=== PATIENT | female | born 1995 | race Caucasian/White ===

== ENCOUNTER 2019-03-28 12:06 | Emergency (ER) | payer OTHER ==
--- OUTSIDE RECORDS SUMMARY | 2019-03-28 12:17 | XMS REPORT | Continuity of Care Document ---
:1995 External Reference #:[id number] Author Name Jeff Perez N.P. Address [address] [place] [address] Care Team Providers Name Role Phone Carolyn Mnoae MD Care Team Information Rn Renal Unavailable Payers Date Identification Numbers Payment Provider Subscriber Effective: 2015 Policy Number: [id number] [facility] Sheri Enriquez PayID: [id number] [address] [place] [address] Policy Number: [id number] Medicaid/[facility] Sheri Enriquez PayID: [id number] [address] [place] [address] Family History Date Family Member(s) Observation Comments General Lupus General Rheumatoid Arthritis General Thyroid Disease General Diabetes General Fibromyalgia General Breast Cancer Father 50 Father No Current Problems Mother 50 Mother Lupus Mother Anti Clotting Disease Children None Siblings 1 Social History Type Date Description Comments Sex Unknown Work Status Part-Time Employment ETOH Use Occasionally consumes alcohol Tobacco Use Start: Unknown Patient has never smoked Recreational Drug Use Denies Drug Use Allergies, Adverse Reactions, Alerts Active Allergies Reaction Severity Comments Date Cefprozil 12/23/2017 Medications Active Medications SIG Qnty Indications Ordering Date Provider Cyclobenzaprine HCL take one tablet 30tabs M62.830 Carolyn Monae, 2018 10mg by mouth three M.D. Tablets times a day as needed Prednisone 2 tab by mouth 60tabs M54.17 Carolyn Monae, 01/19/2019 20mg Tablets daily 4 M.D. days,30mg x3d,61xgh4a,10g mx7d Adderall 1 tab by mouth 60tabs F90.0 Carolyn Monae, 01/20/2018 10mg Tablets twice a day M.D. 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 History Medications Adderall XR 1 tab by mouth 30caps R53.83 Carolyn Monae, 01/06/2018 - 10mg every morning M.D. 01/20/2018 Caps ER 24HR F90.0 Vital Signs Date Vital Result Comment 03/18/2019 11:43am BP Systolic 128 mmHg BP Diastolic 82 mmHg Height 68 inches 5'8" Weight 258.00 lb BMI (Body Mass Index) 39.2 kg/m2 Heart Rate 104 /min Respiratory Rate 16 /min 01/19/2019 3:56pm BP Systolic 128 mmHg BP Diastolic 72 mmHg Height 68 inches 5'8" Weight 247.00 lb BMI (Body Mass Index) 37.6 kg/m2 Heart Rate 86 /min Respiratory Rate 18 /min 10/23/2018 10:29am BP Systolic 124 mmHg BP Diastolic 82 mmHg Height 68 inches 5'8" Weight 243.00 lb BMI (Body Mass Index) 36.9 kg/m2 Heart Rate 78 /min Respiratory Rate 16 /min 01/06/2018 10:32am BP Systolic 130 mmHg BP Diastolic 80 mmHg Height 68 inches 5'8" Weight 269.00 lb BMI (Body Mass Index) 40.9 kg/m2 Heart Rate 87 /min Respiratory Rate 18 /min 12/23/2017 10:20am BP Systolic 120 mmHg BP Diastolic 82 mmHg Height 68 inches 5'8" Weight 269.00 lb BMI (Body Mass Index) 40.9 kg/m2 Heart Rate 83 /min Respiratory Rate 18 /min Results Test Date Facility Test Result H/L Range Note Laboratory test [facility] Thyroglobulin AB <1.8 IU/mL < 4.0 1 finding 8 CBC Auto Diff [facility] White Blood Count 6.9 10^3/uL N 3.5-10.8 8 Red Blood Count 4.49 10^6/uL N 4.0-5.4 Hemoglobin 13.8 g/dL N 12.0-16.0 Hematocrit 40 % N 35-47 Mean Corpuscular Volume 90 fL N 80-97 Mean Corpuscular Hemoglobin 31 pg N 27-31 Mean Corpuscular HGB Conc 34 g/dL N 31-36 Red Cell Distribution Width 13 % N 10.5-15 Platelet Count 229 10^3/uL N 150-450 Mean Platelet Volume 9 um3 N 7.4-10.4 Abs Neutrophils 4.2 10^3/uL N 1.5-7.7 Abs Lymphocytes 2.1 10^3/uL N 1.0-4.8 Abs Monocytes 0.5 10^3/uL N 0-0.8 Abs Eosinophils 0.1 10^3/uL N 0-0.6 Abs Basophils 0 10^3/uL N 0-0.2 Abs Nucleated RBC 0 10^3/uL Granulocyte % 60.2 % N 38-83 Lymphocyte % 30.6 % N 25-47 Monocyte % 7.4 % High 0-7 Eosinophil % 1.2 % N 0-6 Basophil % 0.6 % N 0-2 Nucleated Red Blood Cells % 0 Comp Metabolic Panel 01/06/2018 [facility] Sodium 135 mmol/L N 133- 145 Potassium 4.1 mmol/L N 3.5-5.0 Chloride 105 mmol/L N 101-111 Co2 Carbon Dioxide 25 mmol/L N 22-32 Anion Gap 5 mmol/L N 2-11 Glucose 87 mg/dL N 70-100 Blood Urea Nitrogen 15 mg/dL N 6-24 Creatinine 0.78 mg/dL N 0.51-0.95 BUN/Creatinine Ratio 19.2 N 8-20 Calcium 9.2 mg/dL N 8.6-10.3 Total Protein 6.6 g/dL N 6.4-8.9 Albumin 4.1 g/dL N 3.2-5.2 Globulin 2.5 g/dL N 2-4 Albumin/Globulin Ratio 1.6 N 1-3 Total Bilirubin 0.20 mg/dL N 0.2-1.0 Alkaline Phosphatase 68 U/L N 34-104 Alt 22 U/L N 7-52 Ast 16 U/L N 13-39 Egfr Non- 90.7 >60 Egfr 116.7 >60 2 Laboratory test 01/06/2018 [facility] Erythrocyte Sed 13 mm/Hr N 0- 14 3 finding Rate Connective Tissue 01/06/2018 [facility] Anti-Nuclear 1.3 U High 4 Panel Antibody Cyclic Citrullinated Peptide <15.6 U 5 Interpretation See Comment 6 Melanie Rodriguez 01/06/2018 [facility] Ebv Capsid Ag Positive Negative Comprehensive IgG Ab Ebv Capsid Ag IgM Ab Negative Negative Melanie-Rodriguez Nuclear Antigen Positive Negative Melanie-Rodriguez Virus Interp See Comment 7 Hepatitis Acute 01/06/2018 [facility] Hepatitis B Nonreactive Nonreactive Panel Surface Antigen Hepatitis A AB IgM Nonreactive Nonreactive Hepatitis C Antibody Nonreactive Nonreactive Hepatitis B Core IgM Nonreactive Nonreactive Laboratory test 01/06/2018 [facility] Lyme Disease Negative Negative 8 finding Serology Free T4 (Free Thyroxine) 0.63 ng/dL N 0.61-1.12 9 TSH (Thyroid Stim Horm) 1.59 mcIU/mL N 0.34-5.60 10 Rheumatoid Factor <10 IU/mL 0-14 11 Thyroperoxidase AB 1.54 IU/mL N <9 12 1 ADDITIONAL INFORMATION The thyroglobulin antibody testing method is an immunoenzymatic assay manufactured by [employer]. and performed on the [employer] DXI 800. Values obtained from different assay methods or kits may be different and cannot be used interchangeably. The results cannot be interpreted as absolute evidence for the presence or absence of malignant disease. Test Performed by: [facility] [address] [place] [address] 2 Because ethnic data is not always readily available, this report includes an eGFR for both -Americans and non- Americans. The National Kidney Disease Education Program (NKDEP) does not endorse the use of the MDRD equation for patients that are not between the ages of 18 and 70, are , have extremes of body size, muscle mass, or nutritional status, or are non- or non-. According to the National Kidney Foundation, irrespective of diagnosis, the stage of the disease is based on the level of kidney function: Stage Description GFR(mL/min/1.73 m(2)) 1 Kidney damage with normal or decreased GFR 90 2 Kidney damage with mild decrease in GFR 60-89 3 Moderate decrease in GFR 30-59 4 Severe decrease in GFR 15-29 5 Kidney failure <15 (or dialysis) 3 [id number] Interpretation: Weak Positive (1.1-2.9) REFERENCE VALUE <=1.0 (Negative) 5 REFERENCE VALUE <20.0 (Negative) 6 Tests for antibodies to dsDNA and NORM antigens are not performed automatically unless the ÁNGEL result is > or= 3.0 U. Studies performed at [facility] indicate that positive ÁNGEL results <3.0 U are rarely accompanied by positive second order tests. Test Performed by: [facility] - [address] [address] 7 RESULT: Results suggest past infection. ADDITIONAL INFORMATION In most populations, at least 90% of the adult population will have been infected with EBV sometime in the past and therefore, will be positive for anti-VCA/IgG and anti- EBNA. Antibodies to EBNA develop 6-8 weeks after primary infection and remain present for life. Presence of VCA/ IgM antibodies indicates recent primary infection with EBV. Test Performed by: [facility] - [address] [address] 8 Serologic response to B. burgdorferi infection is not detected, but cannot rule out early infection during which low or undetectable antibody levels to B. burgdorferi may be present. If clinically indicated, a new serum specimen should be submitted in 7-14 days. Test Performed by: [facility] - [address] [address] 9 [id number] 11 Performed by [employer], [address] [place] [id number] [email or web address], Josh Neal MD - Lab. Director Test Performed by: [facility] [address] [place] [address] 12 [id number] Procedures Date Code Description Status 12/23/2017 84790 Visual Screening Test Completed 12/23/2017 93528 Audiometry, Bekesy, Screening Completed Encounters Type Date Location Provider Dx Diagnosis Office Visit 03/18/2019 [facility] Jeff Perez, L20.9 Atopic dermatitis, 11:45a N.P. unspecified J30.9 Allergic rhinitis, unspecified H52.13 Myopia, bilateral E66.01 Morbid (severe) obesity due to excess calories F41.9 Anxiety disorder, unspecified F33.9 Major depressive disorder, recurrent, unspecified Z30.49 Encounter for surveillance of other contraceptives R53.83 Other fatigue G47.419 Narcolepsy without cataplexy M35.8 Other specified systemic involvement of connective tissue M54.17 Radiculopathy, lumbosacral region M62.830 Muscle spasm of back Office Visit 01/19/2019 4:30p [facility] Jeff Perez, L20.9 Atopic dermatitis, N.P. unspecified J30.9 Allergic rhinitis, unspecified H52.13 Myopia, bilateral E66.01 Morbid (severe) obesity due to excess calories F41.9 Anxiety disorder, unspecified F33.9 Major depressive disorder, recurrent, unspecified Z30.49 Encounter for surveillance of other contraceptives R53.83 Other fatigue G47.419 Narcolepsy without cataplexy M35.8 Other specified systemic involvement of connective tissue M54.17 Radiculopathy, lumbosacral region M62.830 Muscle spasm of back Office Visit 10/23/2018 10:30a [facility] Carolyn Monae L20.Chayito Landa M.D. unspecified J30.9 Allergic rhinitis, unspecified H52.13 Myopia, bilateral E66.01 Morbid (severe) obesity due to excess calories F41.9 Anxiety disorder, unspecified F33.9 Major depressive disorder, recurrent, unspecified Z30.49 Encounter for surveillance of other contraceptives R53.83 Other fatigue G47.419 Narcolepsy without cataplexy M35.8 Other specified systemic involvement of connective tissue Office Visit 01/06/2018 10:30a [facility] Carolyn Monae L20.9 Chayito Collins M.D. unspecified J30.9 Allergic rhinitis, unspecified H52.13 Myopia, bilateral E66.01 Morbid (severe) obesity due to excess calories F41.9 Anxiety disorder, unspecified F33.9 Major depressive disorder, recurrent, unspecified G47.00 Insomnia, unspecified Z30.49 Encounter for surveillance of other contraceptives R53.83 Other fatigue G47.419 Narcolepsy without cataplexy M35.8 Other specified systemic involvement of connective tissue Office Visit 12/23/2017 10:15a [facility] Carolyn Monae Z00.01 Encounter for [facility] general adult medical exam w abnormal findings L20.9 Atopic dermatitis, unspecified J30.9 Allergic rhinitis, unspecified H52.13 Myopia, bilateral E66.01 Morbid (severe) obesity due to excess calories F41.9 Anxiety disorder, unspecified F33.9 Major depressive disorder, recurrent, unspecified G47.00 Insomnia, unspecified Z30.49 Encounter for surveillance of other contraceptives R53.83 Other fatigue G47.419 Narcolepsy without cataplexy Z68.41 Body mass index (BMI) 40.0-44.9, adult Plan of Treatment 03/18/2019 - Jeff Perez N.P.L20.9 Atopic dermatitis, unspecifiedComments: SKIN CARE INSTRUCTIONS LOTION OR BABY OIL 2-3 APPLICATION PER DAYUSE MOISTURIZING SOAPAVOID PROLONGED WATER EXPOSUREAVOID USING HOT WATER IN LUUKXXR02.9 Allergic rhinitis, unspecifiedComments:INCREASE PO FLUID USE ANTIHISTAMINE PRN SECOND HAND SMOKING AICYECHHIE66.13 Myopia, bilateralComments: USE GLASSES/ CONTACTSF/U WITH DOPTCAQFLPQWPS89.01 Morbid (severe) obesity due to excess caloriesComments:WT LOSS COUNCELLINGEXERCISEDIET COUNCILLING EXTENSIVE TEACHING ON SURGICAL TX OPTIONS HANDOUT ON DIET GIVEN TO PT WITH EXTENSIVE CUUJDFZE30.9 Anxiety disorder, unspecifiedComments:COUNCELLING AND REASSURANCE RELAXATION TECHNIQUES DISCUSSEDCOUNSELED RE: STRESSORS IN LIFE AVOID ALLENERGY/HIGH CAFFEINE DRINKS DUR LFDXRFTR69.9 Major depressive disorder , recurrent, unspecifiedComments:COUNCELLING AND REASSURANCE RELAXATION TECHNIQUES DISCUSSED COUNSELED RE: STRESSORS IN LIFEZ30.49 Encounter for surveillance of other contraceptivesComments:F/U WITH OB/GYNR53.83 Other fatigueComments:INCRFEASE PO FLUIDCOUNCELLING AND REASSURANCE RESTG47.419 Narcolepsy without cataplexyComments:CYBJTADJ03.8 Other specified systemic involvement of connective tissueComments:COUNCELLING AND REASSURANCE F/U WITH NEUROLOGY/EFXUNPDMDQEL01.17 Radiculopathy, lumbosacral regionNew Xrays:Spine, Thoracic, 3 Views, Ordered: 03/18/19Spine, Lumbosacral, 2 Or 3 Views, Ordered: 03/18/19Comments:EXERCISE/HEAT /MESSAGE AVOID HEAVY LIFTING WT LOSS TYLENOL OR MOTRIN PRNM62.830 Muscle spasm of backComments:EXERCISE/HEAT /MESSAGEAVOID HEAVY LIFTING WT LOSSTYLENOL OR MOTRIN PRN
[2019-03-28 12:29] VITALS: BP 138/74
--- NOTE | 2019-03-28 12:55 | UC ---
Back Pain HPI - HPI Summary HPI Summary: 23-year-old female comes in with a chief complaint of low back pain. Patient's had the pain for several months. Pains worse with twisting turning bending. Pain does go down the left buttock into the left leg. Occasionally with standing she gets some numbness in the left leg in the upper part. Has not had any weakness. No difficulty controlling urine or bowels. Initially patient's are primary care physician sutures taking nonsteroidal anti-inflammatories and got a round of prednisone which did help. Patient's also tried muscle relaxers but she has like a message is make her very sleepy. The last 1 day the pains got a lot worse. Patient had plain x-rays done 2 days ago of her thoracic spine and lumbar spine through her primary care physician. - History of Current Complaint Chief Complaint: UCBackPain Stated Complaint: LOW BACK/LEFT LEG PAIN Time Seen by Provider: 03/28/19 12:28 Hx Last Menstrual Period: 03/21/19; implanon Pain Intensity: 8 - Allergies/Home Medications Allergies/Adverse Reactions: Allergies Allergy/AdvReac Type Severity Reaction Status Date / Time cefprozil [From Cefzil] Allergy Hives Verified 03/28/19 12:20 Home Medications: Home Medications Amphetamine MIXED SALT TAB* [Adderall TAB*] 20 mg PO DAILY 03/28/19 [History Confirmed 03/28/19] Implanon 1 implant ONCE 03/28/19 [History Confirmed 03/28/19] PMH/Surg Hx/FS Hx/Imm Hx Previously Healthy: Yes - Surgical History Surgical History: Yes Surgery Procedure, Year, and Place: TONSILS - Family History Known Family History: Positive: Non-Contributory - Social History Alcohol Use: Occasionally Substance Use Type: None Smoking Status (MU): Never Smoked Tobacco Review of Systems All Other Systems Reviewed And Are Negative: Yes Constitutional: Positive: Negative Skin: Positive: Negative Eyes: Positive: Negative ENT: Positive: Negative Respiratory: Positive: Negative Cardiovascular: Positive: Negative Gastrointestinal: Positive: Negative Genitourinary: Positive: Negative Motor: Positive: Negative Neurovascular: Positive: Other - SEE HPI Musculoskeletal: Positive: Other: - SEE HPI Neurological: Positive: Other - SEE HPI Psychological: Positive: Negative Is Patient Immunocompromised?: No Physical Exam Triage Information Reviewed: Yes Appearance: Well-Appearing, Well-Nourished, Pain Distress - MILD WITH ROM Vital Signs: Initial Vital Signs Temp 97.5 F 03/28/19 12:22 Pulse 93 03/28/19 12:22 Resp 16 03/28/19 12:22 BP 138/74 03/28/19 12:22 Pulse Ox 100 03/28/19 12:22 Vital Signs Reviewed: Yes Eye Exam: Normal Eyes: Positive: Conjunctiva Clear Neck: Positive: Supple Respiratory: Positive: Lungs clear, Normal breath sounds, No respiratory distress Musculoskeletal: Positive: Other: - Patient is tender to palpation in the low back and into the sciatic distribution bilaterally but worse on the right than on the left into the buttocks. Legs have full range of motion full-strength no sensation deficit normal capillary refill. The pain in the back does increase with left hip flexion. Neurological Exam: Normal Neurological: Positive: Alert, Muscle Tone Normal Psychological Exam: Normal Psychological: Positive: Normal Response To Family, Age Appropriate Behavior Skin Exam: Normal Back Pain Course/Dx - Course Course Of Treatment: Patient has no neurologic deficits on examination in clinic today. She has been having intermittent numbness in the left leg that is positional. At this time the patient's already on prednisone she also has a prescription for a muscle relaxer and she is also taking NSAIDs. She is seeing her primary care physician for this and she had x-rays of her thoracic spine and lumbar spine done on March 26, 2019 that were read as no acute disease process. I'm referring the patient to sports medicine she'll also follow-up with primary care physician. Return prescription for hydrocodone to be used as needed. Also let her know that if she got into any neurologic deficits weakness numbness difficulty controlling urine or bowel she needs to get reevaluated right away. - Differential Dx/Diagnosis Provider Diagnosis: Low back pain with sciatica Discharge - Sign-Out/Discharge Documenting (check all that apply): Patient Departure All imaging exams completed and their final reports reviewed: No Studies - Discharge Plan Condition: Stable Disposition: HOME Prescriptions: HYDROcodone/ACETAMIN 5-325 MG* [[place] 5-325 TAB*] 1 tab PO Q4H PRN #30 tab MDD 6 PRN Reason: Pain Patient Education Materials: Low Back Strain (ED), Lumbar Radiculopathy (ED), Lower Back Exercises (ED) Referrals: Jeff Perez NP [Primary Care Provider] - [facility] [Provider Group] Additional Instructions: FOLLOW UP WITH YOUR PRIMARY CARE DOCTOR AND/OR SPORTS MEDICINE. GET RECHECKED SOONER IF YOUR CONDITION WORSENS; WEAKNESS, NUMBNESS, DIFFICULTY CONTROLLING BOWEL OR BLADDER OR ANY QUESTIONS OR CONCERNS. - Billing Disposition and Condition Condition: STABLE Disposition: Home
== END 2019-03-28 13:06 | disposition home or self-care (01) ==
LOC: UCCORT 12:06
DX: M54.42 Lumbago with sciatica, left side (principal); Z88.1 Allergy status to other antibiotic agents
CPT/HCPCS: 99212; G0463

== ENCOUNTER 2019-07-18 11:49 | Emergency (ER) | payer OTHER ==
--- OUTSIDE RECORDS SUMMARY | 2019-07-18 11:59 | XMS REPORT | Continuity of Care Document ---
:1995 External Reference #:[id number] Author Name Jeff Perez N.P. Address [address] [place] [address] [address] [place] [address] Care Team Providers Name Role Phone Carolyn Monae MD - Family Medicine Care Team Information [employer] [phone] Problems Description No Information Available Social History Type Date Description Comments Sex Unknown ETOH Use Occasionally consumes alcohol Tobacco Use [...] 01/19/2019 20mg Tablets daily 4 M.D. days,30mg x3d,80jhe9d,10g mx7d Adderall 1 tab by mouth 60tabs F90.0 Carolyn Monae, 01/20/2018 10mg Tablets twice a day M.D. G47.419 Nexplanon use as directed by Z30.49 Carolyn Monae, 12/23/2017 68mg Implant addiction nurse q3 years M.D. Immunizations Description No Information Available Vital Signs Date Vital Result Comment 06/24/2019 11:30am BP Systolic 124 mmHg BP Diastolic 70 mmHg Height 68 inches 5'8" Weight 273.00 lb BMI (Body Mass Index) 41.5 kg/m2 Heart Rate 128 /min Respiratory Rate 18 /min 04/01/2019 11:16am BP Systolic 128 mmHg BP Diastolic 72 mmHg Height 68 inches 5'8" Weight 264.00 lb BMI (Body Mass Index) 40.1 kg/m2 Heart Rate 93 /min Respiratory Rate 18 /min Results Description No Information Available Procedures Description No Information Available Medical Devices Description No Information Available Encounters Type Date Location Provider Dx Diagnosis Office Visit 06/24/2019 [facility] Jeff Perez, L20.9 Atopic dermatitis, 11:30a N.P. 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 unspecified [...] M62.830 Muscle spasm of back Office Visit 03/18/2019 11:45a [facility] Jeff Perez, L20.9 Atopic dermatitis, N.P. unspecified [...] spasm of back Office Visit 01/19/2019 4:30p [facility] Jeff Perez, L20.9 Atopic dermatitis, N.P. unspecified J30.9 Allergic rhinitis, unspecified H52.13 Myopia, bilateral E66.01 Morbid (severe) obesity due to excess calories F41.9 Anxiety disorder, unspecified F33.9 Major depressive disorder, recurrent, unspecified Z30.49 Encounter for surveillance of other contraceptives R53.83 Other fatigue G47.419 Narcolepsy without cataplexy M35.8 Other specified systemic involvement of connective tissue M54.17 Radiculopathy, lumbosacral region M62.830 Muscle spasm of back Assessments Date Code Description Provider 06/24/2019 L20.9 Atopic dermatitis, unspecified Jeff Perez, N.P. 06/24/2019 J30.9 Allergic rhinitis, unspecified Jeff Perez, N.P. 06/24/2019 H52.13 Myopia, bilateral Jeff Perez, N.P. 06/24/2019 E66.01 Morbid (severe) obesity due to excess calories Jeff Perez, N.P. 06/24/2019 F41.9 Anxiety disorder, unspecified Jeff Perez, N.P. 06/24/2019 F33.9 Major depressive disorder, recurrent, Jeff Perez, N.P. unspecified 06/24/2019 Z30.49 Encounter for surveillance of other Jeff Chris, N.P. contraceptives 06/24/2019 R53.83 Other fatigue Jeff Perez, N.P. 06/24/2019 G47.419 Narcolepsy without cataplexy Jeff Perez, N.P. 06/24/2019 M35.8 Other specified systemic involvement of Jeff Perez, N.P. connective tissue 06/24/2019 M54.17 Radiculopathy, lumbosacral region Jeff Perez, N.P. 06/24/2019 M62.830 Muscle spasm of back Jeff Perez, N.P. 06/24/2019 E66.9 Obesity, unspecified Jeff Perez, N.P. 04/01/2019 L20.9 Atopic dermatitis, unspecified Jeff Perez, N.P. 04/01/2019 J30.9 Allergic rhinitis, unspecified Jeff Perez, N.P. 04/01/2019 H52.13 Myopia, bilateral Jeff Perez, N.P. 04/01/2019 E66.01 Morbid (severe) obesity due to excess calories Jeff Perez, N.P. 04/01/2019 F41.9 Anxiety disorder, unspecified Jeff Perez, N.P. 04/01/2019 F33.9 Major depressive disorder, recurrent, Jeff Perez, N.P. unspecified 04/01/2019 Z30.49 Encounter for surveillance of other Jeff Perez, N.P. contraceptives 04/01/2019 R53.83 Other fatigue Jeff Perez, N.P. 04/01/2019 G47.419 Narcolepsy without cataplexy Jeff Perez, N.P. 04/01/2019 M35.8 Other specified systemic involvement of Jeff Perez, N.P. connective tissue 04/01/2019 M54.17 Radiculopathy, lumbosacral region Jeff Perez, N.P. 04/01/2019 M62.830 Muscle spasm of back Jeff Perez, N.P. 03/18/2019 L20.9 Atopic dermatitis, unspecified Jeff Perez, N.P. 03/18/2019 J30.9 Allergic rhinitis, unspecified Jeff Perez, N.P. 03/18/2019 H52.13 Myopia, bilateral Jeff Perez, N.P. 03/18/2019 E66.01 Morbid (severe) obesity due to excess calories Jeff Perez, N.P. 03/18/2019 F41.9 Anxiety disorder, unspecified Jeff Perez, N.P. 03/18/2019 F33.9 Major depressive disorder, recurrent, Jeff Perez, N.P. unspecified 03/18/2019 Z30.49 Encounter for surveillance of other Jeff Perez, N.P. contraceptives 03/18/2019 R53.83 Other fatigue Jeff Perez, N.P. 03/18/2019 G47.419 Narcolepsy without cataplexy Jeff Perez, N.P. 03/18/2019 M35.8 Other specified systemic involvement of Jeff Perez, N.P. connective tissue 03/18/2019 M54.17 Radiculopathy, lumbosacral region Jeff Perez, N.P. 03/18/2019 M62.830 Muscle spasm of back Jeff Perez, N.P. 01/19/2019 L20.9 Atopic dermatitis, unspecified Jeff Perez, N.P. 01/19/2019 J30.9 Allergic rhinitis, unspecified Jeff Perez, N.P. 01/19/2019 H52.13 Myopia, bilateral Jeff Perez N.P. 01/19/2019 E66.01 Morbid (severe) obesity due to excess calories Jeff Perez N.P. 01/19/2019 F41.9 Anxiety disorder, unspecified Jeff Perez N.P. 01/19/2019 F33.9 Major depressive disorder, recurrent, Jeff Perez N.P. unspecified 01/19/2019 Z30.49 Encounter for surveillance of other Jeff Perez N.P. contraceptives 01/19/2019 R53.83 Other fatigue Jeff Perez N.P. 01/19/2019 G47.419 Narcolepsy without cataplexy Jeff Perez N.P. 01/19/2019 M35.8 Other specified systemic involvement of Chema Lorenz.Pop connective tissue 01/19/2019 M54.17 Radiculopathy, lumbosacral region Jeff Perez N.P. 01/19/2019 M62.830 Muscle spasm of back Jeff Perez N.Pop Plan of Treatment 06/24/2019 - Jeff Perez N.PYousifL20.9 Atopic dermatitis, unspecifiedComments: SKIN CARE INSTRUCTIONS LOTION OR BABY OIL 2-3 APPLICATION PER DAYUSE MOISTURIZING SOAPAVOID PROLONGED WATER EXPOSUREAVOID USING HOT WATER IN EWDYEYW17.9 Allergic rhinitis, unspecifiedComments:INCREASE PO FLUID USE ANTIHISTAMINE PRN SECOND HAND SMOKING YUXUDWYIXD64.13 Myopia, bilateralComments: USE GLASSES/ CONTACTSF/U WITH HTGBEFTESYLJNO46.01 Morbid (severe) obesity due to excess caloriesComments:WT LOSS COUNCELLINGEXERCISEDIET COUNCILLING EXTENSIVE TEACHING ON SURGICAL TX OPTIONS HANDOUT ON DIET GIVEN TO PT WITH EXTENSIVE ATEBJDII51.9 Anxiety disorder, unspecifiedComments:COUNCELLING AND REASSURANCE RELAXATION TECHNIQUES DISCUSSEDCOUNSELED RE: STRESSORS IN LIFE AVOID ALLENERGY/HIGH CAFFEINE DRINKS DUR GAVZANVI07.9 Major depressive disorder , recurrent, unspecifiedComments:COUNCELLING AND REASSURANCE RELAXATION TECHNIQUES DISCUSSED COUNSELED RE: STRESSORS IN LIFEZ30.49 Encounter for surveillance of other contraceptivesComments:F/U WITH OB/GYNR53.83 Other fatigueComments:INCRFEASE PO FLUIDCOUNCELLING AND REASSURANCE RESTG47.419 Narcolepsy without cataplexyComments:TRPFDHDM77.8 Other specified systemic involvement of connective tissueComments:COUNCELLING AND REASSURANCE F/U WITH NEUROLOGY/VHQMZUQMFMJT68.17 Radiculopathy, lumbosacral regionComments:EXERCISE/ HEAT /MESSAGE AVOID HEAVY LIFTING WT LOSS TYLENOL OR MOTRIN PRNM62.830 Muscle spasm of backComments:EXERCISE/HEAT /MESSAGEAVOID HEAVY LIFTING WT LOSSTYLENOL OR MOTRIN PRNE66.9 Obesity, unspecifiedComments:WT LOSS COUNCELLINGEXERCISEDIET COUNCILLINGReferral:[facility], [employer] Functional Status Functional Condition Comment Date Status Glasses Active Mental Status Description No Information Available Referrals Refer to Dr Reason for Referral Status Appt Date [facility] Created [address] [facility] [id number] [phone] [facility] Therapy Closed [address] [place], [place] [id number] [phone]
[2019-07-18 13:16] VITALS: BP 124/81
--- NOTE | 2019-07-18 13:59 | UC ---
Back Pain HPI - HPI Summary HPI Summary: pt is c/o a 6 month hx of "nerve pain" in her L low back that sometimes radiates into her L buttock and L thigh. It began after "rodeoing" while getting off her horse. she has had thoracic and lumbar xrays which are normal. she is currently in PT. she is taking Motrin with occasional partial relief. she has been on a mm relaxer which helped and steroids that helped as well. around 06/24, she felt much improved and figured she was better; however, she has gotten much worse again. last she saw her pcp was when things had improved. - History of Current Complaint Chief Complaint: UCBackPain Stated Complaint: LEFT LEG NERVE PAIN Time Seen by Provider: 07/18/19 13:46 Hx Obtained From: Patient Hx Last Menstrual Period: 06/09/19 Pain Intensity: 8 Aggravating Factor(s): Movement, Bending Associated Signs And Symptoms: Positive: Other - no saddle anesthesia. Negative : Fever, Weakness, Numbness, Tingling, Abdominal Pain, Flank Pain, Bladder Incontinence, Bowel Incontinence - Risk Factors Cauda Equina Risk Factors: Negative Epidural Abscess Risk Factors: Negative - Allergies/Home Medications Allergies/Adverse Reactions: Allergies Allergy/AdvReac Type Severity Reaction Status Date / Time cefprozil [From Cefzil] Allergy Hives Verified 07/18/19 13:16 Home Medications: Home Medications Ibuprofen TAB* [Motrin TAB* 800 MG] 800 mg PO ONCE 07/18/19 [History Confirmed 07/18/19] PMH/Surg Hx/FS Hx/Imm Hx - Additional Past Medical History Additional PMH: ADHD, low back and LLE pain x 6 months. - Surgical History Surgical History: Yes Surgery Procedure, Year, and Place: TONSILS - Family History Known Family History: Positive: Non-Contributory - Social History Alcohol Use: Occasionally Substance Use Type: None Smoking Status (MU): Never Smoked Tobacco Review of Systems All Other Systems Reviewed And Are Negative: No Constitutional: Negative: Fever Skin: Negative: Rash Gastrointestinal: Negative: Abdominal Pain, Vomiting, Diarrhea, Nausea Genitourinary: Negative: Dysuria Neurological: Positive: Paresthesia - LLE. Negative: Weakness, Numbness Physical Exam Triage Information Reviewed: Yes Appearance: Well-Appearing Vital Signs: Initial Vital Signs Temp 98.4 F 07/18/19 13:06 Pulse 65 07/18/19 13:06 Resp 16 07/18/19 13:06 BP 124/81 07/18/19 13:06 Pulse Ox 100 07/18/19 13:06 Vital Signs Reviewed: Yes Eyes: Positive: Conjunctiva Clear ENT: Positive: Pharynx normal, TMs normal. Negative: Nasal congestion, Nasal drainage Neck: Positive: Supple, Nontender, No Lymphadenopathy, Other: - c-spine non tender. Respiratory: Positive: Lungs clear, Normal breath sounds, No respiratory distress Cardiovascular: Positive: RRR, No Murmur Abdomen Description: Positive: Nontender, No Organomegaly, Soft. Negative: Distended, Guarding, Pulsatile Mass Musculoskeletal: Positive: Other: - Back: no deformity or rash. spine is non tender. pain L paraspinal MM's in lumbar region and limited ROM due to L low back pain. sciatic notch non tender and negative straight leg raises x2. 5/5 strength and sensation intact x4. No saddle anesthesia. 1+ reflexes BUE's and 2 + BLE's. steady gait. Neurological: Positive: Alert Psychological: Positive: Age Appropriate Behavior Skin Exam: Normal Skin: Negative: Rashes Back Pain Course/Dx - Differential Dx/Diagnosis Differential Diagnosis/HQI/PQRI: Other - no concern for infection, fx or acute abdomen. no concern for cauda equina. hx suggests a radiculopathy. wiil tx medrol dose jamilah, mm relaxor, Motrin for break thorugh pain and close f/u. will give name of neurosurgeon as well in case needed. Provider Diagnosis: Lumbar radiculopathy, Low back pain Discharge ED - Sign-Out/Discharge Documenting (check all that apply): Patient Departure All imaging exams completed and their final reports reviewed: No Studies - Discharge Plan Condition: Stable Disposition: HOME Prescriptions: Cyclobenzaprine TAB* [Flexeril 10 MG TAB*] 10 mg PO TID PRN #15 tab PRN Reason: Spasms - Back Ibuprofen TAB* [Motrin TAB* 600 MG] 600 mg PO Q8H PRN #15 tab PRN Reason: Pain - Severe methylPREDNISolone [Medrol Dosepak 4 MG*] 0 mg PO .SEE JAMILAH INSTRUCTION #1 tab Patient Education Materials: Lumbar Radiculopathy (ED), Back Pain (ED) Referrals: Jeff Perez NP [Primary Care Provider] - As Soon As Possible Vikram CROCKETT,Analia [Medical Doctor] - If Needed Additional Instructions: USE THE MOTRIN FOR BREAK THROUGH PAIN ONLY. TAKE 600MG EVERY 8 HOURS NEEDED. - Billing Disposition and Condition Condition: STABLE Disposition: Home
== END 2019-07-18 14:28 | disposition home or self-care (01) ==
LOC: UCCORT 11:49
DX: M54.16 Radiculopathy, lumbar region (principal); Z88.2 Allergy status to sulfonamides
CPT/HCPCS: 99212; G0463

== ENCOUNTER 2019-09-12 15:59 | Emergency (ER) | payer OTHER ==
--- OUTSIDE RECORDS SUMMARY | 2019-09-12 16:07 | XMS REPORT | Continuity of Care Document ---
:1995 External Reference #:[id number] Author Name Jeff Perez N.P. Address [address] [place] [address] [address] [place] [address] Care Team Providers Name Role Phone Carolyn Monae MD - Family Medicine Care Team Information Network Admin Problems Description No Information Available Social History [...] 01/19/2019 20mg Tablets daily 4 M.D. days,30mg x3d,79kmh7b,10g mx7d Adderall 1 tab by mouth 60tabs F90.0 Carolyn Monae, 01/20/2018 10mg Tablets twice a day M.D. G47.419 Nexplanon use as directed by Z30.49 Carolyn Monae, 12/23/2017 68mg Implant judge q3 years M.D. Immunizations Description No Information Available Vital Signs Date Vital Result Comment 07/29/2019 1:28pm BP Systolic 130 mmHg BP Diastolic 65 mmHg Height 68 inches 5'8" Weight 277.00 lb BMI (Body Mass Index) 42.1 kg/m2 Heart Rate 85 /min Respiratory Rate 16 /min 06/24/2019 11:30am BP Systolic 124 mmHg BP Diastolic 70 mmHg Height 68 inches 5'8" Weight 273.00 lb BMI (Body Mass Index) 41.5 kg/m2 Heart Rate 128 /min Respiratory Rate 18 /min Results Description No Information Available Procedures Description No Information Available Medical Devices Description No Information Available Encounters Type Date Location Provider Dx Diagnosis Office Visit 07/29/2019 [facility] Jeff Perez, L20.9 Atopic dermatitis, 1:30p N.P. unspecified J30.9 Allergic rhinitis, unspecified H52.13 Myopia, bilateral E66.01 Morbid (severe) obesity due to excess calories F41.9 Anxiety disorder, unspecified F33.9 Major depressive disorder, recurrent, unspecified Z30.49 Encounter for surveillance of other contraceptives R53.83 Other fatigue G47.419 Narcolepsy without cataplexy M35.8 Other specified systemic involvement of connective tissue M54.17 Radiculopathy, lumbosacral region M62.830 Muscle spasm of back E66.9 Obesity, unspecified Office Visit 06/24/2019 11:30a [facility] Jeff Perez, L20.9 Atopic dermatitis, N.P. [...] E66.9 Obesity, unspecified Office Visit 04/01/2019 11:15a [facility] Jeff Perez, L20.9 Atopic dermatitis, N.P. [...] spasm of back Office Visit 03/18/2019 11:45a [facility] Jeff Perez, L20.9 Atopic dermatitis, N.P. [...] of back Assessments Date Code Description Provider 07/29/2019 L20.9 Atopic dermatitis, unspecified Jeff Perez, N.P. 07/29/2019 J30.9 Allergic rhinitis, unspecified Jeff Perez, N.P. 07/29/2019 H52.13 Myopia, bilateral Jeff Perez, N.P. 07/29/2019 E66.01 Morbid (severe) obesity due to excess calories Jeff Perez, N.P. 07/29/2019 F41.9 Anxiety disorder, unspecified Jeff Perez, N.P. 07/29/2019 F33.9 Major depressive disorder, recurrent, Jeff Perez, N.P. unspecified 07/29/2019 Z30.49 Encounter for surveillance of other Jeff Perez, N.P. contraceptives 07/29/2019 R53.83 Other fatigue Jeff Perez, N.P. 07/29/2019 G47.419 Narcolepsy without cataplexy Jeff Perez, N.P. 07/29/2019 M35.8 Other specified systemic involvement of Jeff Perez, N.P. connective tissue 07/29/2019 M54.17 Radiculopathy, lumbosacral region Jeff Perez, N.P. 07/29/2019 M62.830 Muscle spasm of back Jeff Perez, N.P. 07/29/2019 E66.9 Obesity, unspecified Jeff Perez, N.P. 07/27/2019 L20.9 Atopic dermatitis, unspecified Jeff Perez, N.P. 07/27/2019 J30.9 Allergic rhinitis, unspecified Jeff Perez, N.P. 07/27/2019 H52.13 Myopia, bilateral Jeff Perez, N.P. 07/27/2019 E66.01 Morbid (severe) obesity due to excess calories Jeff Perez, N.P. 07/27/2019 F41.9 Anxiety disorder, unspecified Jeff Perez, N.P. 07/27/2019 F33.9 Major depressive disorder, recurrent, Jeff Perez, N.P. unspecified 07/27/2019 Z30.49 Encounter for surveillance of other Jeff Perez, N.P. contraceptives 07/27/2019 R53.83 Other fatigue Jeff Perez, N.P. 07/27/2019 G47.419 Narcolepsy without cataplexy Jeff Perez, N.P. 07/27/2019 M35.8 Other specified systemic involvement of Jeff Perez, N.P. connective tissue 07/27/2019 M54.17 Radiculopathy, lumbosacral region Jeff Perez, N.P. 07/27/2019 M62.830 Muscle spasm of back Jeff Perez, N.P. 07/27/2019 E66.9 Obesity, unspecified Jeff Perez, N.P. 06/24/2019 L20.9 Atopic dermatitis, unspecified Jeff Perez, [...] surveillance of other Jeff Perez, N.P. contraceptives 06/24/2019 R53.83 Other fatigue Jeff [...] 03/18/2019 M62.830 Muscle spasm of back Jeff Perez N.P. Plan of Treatment No Information Available Functional Status Functional Condition Comment Date Status Glasses Active Mental Status Description No Information Available Referrals Refer to Dr Reason for Referral Status Appt [facility] Sent [address] [facility] [id number] [phone] [facility] [address] [place], [place] [id number] [phone]
--- OUTSIDE RECORDS SUMMARY | 2019-09-12 16:07 | XMS REPORT | Continuity of Care Document ---
:1995 External Reference #:[id number] Author Name Jeff Perez N.P. Address [address] [place] [address] [address] [place] [address] Care Team Providers Name Role Phone Carolyn Monae MD - Family Medicine Care Team Information Nursing Care Partner [phone] Problems Description No Information Available Social History Type Date Description Comments Sex Unknown ETOH Use Occasionally consumes alcohol Tobacco Use Start: Unknown Patient has never smoked Recreational Drug Use Denies Drug Use Allergies, Adverse Reactions, Alerts Active Allergies Reaction Severity Comments Date Cefprozil 12/23/2017 Medications Active Medications SIG Qnty Indications Ordering Date Provider Oxycodone-Acetaminophen 1 tab four times 28tabs M51.15 Carolyn Monae, a day as needed M.D. 5-325mg Tablets Nortriptyline HCL 1 cap by mouth 30caps M51.15 Carolyn Monae, 08/19/2019 75mg at bedtime M.D. Capsules Ibuprofen 1 by mouth three 90tabs M51.15 Carolyn Monae, 08/19/2019 800mg Tablets times a day as M.D. needed Cyclobenzaprine HCL take one tablet 30tabs M62.830 Carolyn Monae, 2018 10mg by mouth three M.D. Tablets times a day as needed Prednisone 2 tab by mouth 60tabs M54.17 Carolyn Monae, 01/19/2019 20mg Tablets daily 4 M.D. days,30mg x3d,82uay5l,10gm x7d Nexplanon use as directed Z30.49 Carolyn Monae, 12/23/2017 68mg Implant by bronze chaser q3 M.D. years Immunizations Description No Information Available Vital Signs Date Vital Result Comment 08/19/2019 1:11pm BP Systolic 122 mmHg BP Diastolic 65 mmHg Height 68 inches 5'8" Heart Rate 85 /min Respiratory Rate 17 /min 07/29/2019 1:28pm BP Systolic 130 mmHg BP Diastolic 65 mmHg Height 68 inches 5'8" Weight 277.00 lb BMI (Body Mass Index) 42.1 kg/m2 Heart Rate 85 /min Respiratory Rate 16 /min Results Description No Information Available Procedures Description No Information Available Medical Devices Description No Information Available Encounters Type Date Location Provider Dx Diagnosis Office Visit 08/19/2019 [facility] Jeff Perez, L20.9 Atopic dermatitis, 1:00p N.P. unspecified J30.9 Allergic rhinitis, unspecified H52.13 Myopia, bilateral E66.01 Morbid (severe) obesity due to excess calories F41.9 Anxiety disorder, unspecified F33.9 Major depressive disorder, recurrent, unspecified Z30.49 Encounter for surveillance of other contraceptives R53.83 Other fatigue G47.419 Narcolepsy without cataplexy M35.8 Other specified systemic involvement of connective tissue M54.17 Radiculopathy, lumbosacral region M62.830 Muscle spasm of back E66.9 Obesity, unspecified M51.37 Other intervertebral disc degeneration, lumbosacral region M51.15 Intvrt disc disorders w radiculopathy, thoracolumbar region Office Visit 07/29/2019 1:30p [facility] Jeff Perez, L20.9 Atopic dermatitis, N.P. [...] E66.9 Obesity, unspecified Office Visit 06/24/2019 11:30a [facility] Jeff Perez, L20.9 Atopic dermatitis, N.P. [...] E66.9 Obesity, unspecified Office Visit 04/01/2019 11:15a [facility] Jeff Perez, L20.9 Atopic dermatitis, N.P. [...] spasm of back Office Visit 03/18/2019 11:45a [facility] Jeff Perez, L20.9 Atopic dermatitis, N.P. [...] of back Assessments Date Code Description Provider 08/19/2019 L20.9 Atopic dermatitis, unspecified Jeff Perez, N.P. 08/19/2019 J30.9 Allergic rhinitis, unspecified Jeff Perez, N.P. 08/19/2019 H52.13 Myopia, bilateral Jeff Perez N.P. 08/19/2019 E66.01 Morbid (severe) obesity due to excess calories Jeff Perez, N.P. 08/19/2019 F41.9 Anxiety disorder, unspecified Jeff Perez, N.P. 08/19/2019 F33.9 Major depressive disorder, recurrent, Jeff Perez, N.P. unspecified 08/19/2019 Z30.49 Encounter for surveillance of other Jeff Perez, N.P. contraceptives 08/19/2019 R53.83 Other fatigue Jeff Perez, N.P. 08/19/2019 G47.419 Narcolepsy without cataplexy Jeff Perez, N.P. 08/19/2019 M35.8 Other specified systemic involvement of Jeff Perez, N.P. connective tissue 08/19/2019 M54.17 Radiculopathy, lumbosacral region Jeff Perez, N.P. 08/19/2019 M62.830 Muscle spasm of back Jeff Perez, N.P. 08/19/2019 E66.9 Obesity, unspecified Jeff Perez, N.P. 08/19/2019 M51.37 Other intervertebral disc degeneration, Jeff Perez, N.P. lumbosacral region 08/19/2019 M51.15 Intervertebral disc disorders with Jeff Perez, N.P. radiculopathy, thoracolumbar region 07/29/2019 L20.9 Atopic dermatitis, unspecified Jeff Perez, [...] N.P. 06/24/2019 G47.419 Narcolepsy without cataplexy Jeff Perez N.P. 06/24/2019 M35.8 Other specified systemic involvement [...] 03/18/2019 Z30.49 Encounter for surveillance of other Chema Lorenz.PYousif contraceptives 03/18/2019 R53.83 Other fatigue Jeff Perez N.P. 03/18/2019 G47.419 Narcolepsy without cataplexy Chema Lorenz.PYousif 03/18/2019 M35.8 Other specified systemic involvement of Jeff Perez N.P. connective tissue 03/18/2019 M54.17 Radiculopathy, lumbosacral region Chema Lorenz.PYousif 03/18/2019 M62.830 Muscle spasm of back Jeff Perez N.P. Plan of Treatment No Information Available Functional Status Functional Condition Comment Date Status Glasses Active Mental Status Description No Information Available Referrals Refer to Reason for Referral Status Appt Date Analia Sue MD Created [address] [place] [address] [phone] [facility] [address] [facility] [address] [phone] [facility] Closed [address] [facility] [place] [address] [phone]
[2019-09-12 16:18] VITALS: BP 129/82
--- NOTE | 2019-09-12 17:09 | UC ---
Back Pain HPI - HPI Summary HPI Summary: Pt presents with c/o sudden onset of low back pain that radiates down left posterior leg. Pt has hx of herniated discs. Pt is scheduled to see neurosurgeon in October 2019 Pt denies loss of bowel or bladder control. - History of Current Complaint Chief Complaint: UCBackPain Stated Complaint: LOW BACK PAIN Time Seen by Provider: 09/12/19 16:27 Hx Obtained From: Patient Hx Last Menstrual Period: 08/14/19 ?: No Onset/Duration: Sudden Onset, Still Present Timing: Constant Severity Initially: Severe Severity Currently: Mild Pain Intensity: 8 Back Pain: Is Discrete @ - low back Character: Sharp, Dull, Aching, Throbbing, Stiffness Aggravating Factor(s): Movement, Lifting, Bending, Walking Alleviating Factor(s): Nothing Associated Signs And Symptoms: Positive: Negative - Risk Factors AAA Risk Factors: Negative TAD Risk Factors: Negative Cauda Equina Risk Factors: Negative Epidural Abscess Risk Factors: Negative - Allergies/Home Medications Allergies/Adverse Reactions: Allergies Allergy/AdvReac Type Severity Reaction Status Date / Time cefprozil [From Cefzil] Allergy Hives Verified 09/12/19 16:10 Home Medications: Home Medications Amphetamine MIXED SALT TAB* [Adderall TAB*] 1 tab PO BID 09/12/19 [History Confirmed 09/12/19] Ibuprofen TAB* [Advil TAB*] 2 tab PO ONCE 09/12/19 [History Confirmed 09/12/19] Oxycodone HCl 1 tab PO Q8H PRN 09/12/19 [History Confirmed 09/12/19] PMH/Surg Hx/FS Hx/Imm Hx Previously Healthy: Yes - Surgical History Surgical History: Yes Surgery Procedure, Year, and Place: T&A - Family History Known Family History: Positive: Non-Contributory - Social History Alcohol Use: Occasionally Substance Use Type: None Smoking Status (MU): Never Smoked Tobacco Have You Smoked in the Last Year: No Review of Systems All Other Systems Reviewed And Are Negative: Yes Constitutional: Positive: Negative Skin: Positive: Negative Eyes: Positive: Negative ENT: Positive: Negative Respiratory: Positive: Negative Cardiovascular: Positive: Negative Gastrointestinal: Positive: Negative Genitourinary: Positive: Negative Motor: Positive: Decreased ROM - low back Neurovascular: Positive: Negative Musculoskeletal: Positive: Arthralgia, Decreased ROM, Myalgia Neurological: Positive: Negative Psychological: Positive: Negative Is Patient Immunocompromised?: No Physical Exam Triage Information Reviewed: Yes Appearance: Pain Distress Vital Signs: Initial Vital Signs Temp 97.1 F 09/12/19 16:12 Pulse 84 09/12/19 16:12 Resp 18 09/12/19 16:12 BP 129/82 09/12/19 16:12 Pulse Ox 100 09/12/19 16:12 Vital Signs Reviewed: Yes Eye Exam: Normal ENT Exam: Normal Dental Exam: Normal Neck exam: Normal Respiratory Exam: Normal Cardiovascular Exam: Normal Musculoskeletal: Positive: ROM Limited @ - low back c/o pain with ROM Neurological Exam: Normal Neurological: Positive: Muscle Tone Normal Psychological Exam: Normal Skin Exam: Normal Back Pain Course/Dx - Differential Dx/Diagnosis Differential Diagnosis/HQI/PQRI: Fracture, Herniated Disc, Strain, Sprain Provider Diagnosis: Low back pain Discharge ED - Sign-Out/Discharge Documenting (check all that apply): Patient Departure All imaging exams completed and their final reports reviewed: No Studies - Discharge Plan Condition: Stable Disposition: HOME Prescriptions: traMADol TAB* [Ultram*] 50 mg PO Q12H PRN #10 tab MDD 100 mg PRN Reason: Pain - Moderate Patient Education Materials: Low Back Strain (ED), Back Pain (ED) Referrals: Jeff Perez NP [Primary Care Provider] - As Soon As Possible Additional Instructions: Please follow up with your PC and neurosurgeon as soon as possible. - Billing Disposition and Condition Condition: STABLE Disposition: Home
== END 2019-09-12 16:50 | disposition home or self-care (01) ==
LOC: UCCORT 15:59
DX: M54.5 Low back pain (principal); M79.605 Pain in left leg; Z88.1 Allergy status to other antibiotic agents
CPT/HCPCS: 99212; G0463

== ENCOUNTER 2021-05-26 00:59 | Inpatient (IN) ==
[2021-05-26 02:04] LABS: Urine Appearance Clear; Urine Bilirubin Negative (Negative); Urine Blood Negative (Negative); Urine Color Yellow; Urine Glucose Negative (Negative); Urine Ketones Negative (Negative); Urine Nitrite Negative (Negative); Urine Protein Negative (Negative); Urine Specific Gravity 1.012 (1.002-1.030); Urine Urobilinogen Negative (Negative)
[2021-05-26 02:13] LABS: Urine Benzodiazepine Screen None Detected (None Detect); Urine Cannabinoids Screen Presumptive Positive (None Detect); Urine Opiates Screen None Detected (None Detect)
[2021-05-26 02:15] LABS: ABS Lymphocytes 2.3 10^3/ul (1.0-4.8); ABS Monocytes 0.5 10^3/ul (0-0.8); ABS Neutrophils 4.4 10^3/ul (1.5-7.7); Eosinophil % 0.6 %; Hematocrit 37 % (35-47); Lymphocyte % 31.9 %; Mean Corpuscular HGB Conc 35 g/dL (31-36); Mean Corpuscular Hemoglobin 33 pg (27-31); Mean Corpuscular Volume 93 fL (80-97); Mean Platelet Volume 7.3 fL (7.4-10.4); Platelet Count 247 10^3/uL (150-450); Red Blood Count 3.98 10^6 /uL (3.70-4.87); Red Cell Distribution Width 13 % (10-15); White Blood Count 7.3 10^3/uL (3.5-10.8)
[2021-05-26 02:29] LABS: Acetaminophen < 15 mcg/mL; Alcohol, S 80 mg/dL (<10); Salicylate < 2.50 mg/dL (<30)
[2021-05-26 02:30] LABS: ALT 21 U/L (7-52); AST 22 U/L (13-39); Albumin 4.2 g/dL (3.2-5.2); Albumin/Globulin Ratio 1.6 (1-3); Alkaline Phosphatase 74 U/L (35-149); Anion Gap 8 mmol/L (2-11); Blood Urea Nitrogen 11 mg/dL (6-24); CO2 Carbon Dioxide 26 mmol/L (22-32); Calcium 8.5 mg/dL (8.6-10.3); Chloride 106 mmol/L (101-111); EGFR African American 95.8 (>60); EGFR Non-African American 79.2 (>60); Globulin 2.6 g/dL (2-4); Glucose 95 mg/dL (70-100); Potassium 3.6 mmol/L (3.5-5.0); Sodium 140 mmol/L (135-145); Total Protein 6.8 g/dL (6.4-8.9)
[2021-05-26 02:37] LABS: HCG Pregnancy < 0.60 mIU/mL
[2021-05-26] MEDS ORDERED: Al Hydrox/Mg Hydrox/Simet LIQ 30 ML UDC PO PRN (10:19)
[2021-05-26] MEDS: Cholecalciferol (VIT D3) 1,000 unit TAB PO SCH (22:09)
[2021-05-27] MEDS: Amphetamine MIXED SALT 10mgTAB PO SCH ×2 (08:48→12:00)
[2021-05-27] MEDS: Multivitamins/Minerals TAB PO SCH (08:49)
[2021-05-27] MEDS: Cholecalciferol (VIT D3) 1,000 unit TAB PO SCH ×2 (08:49→21:09)
[2021-05-28] MEDS: Amphetamine MIXED SALT 10mgTAB PO SCH ×2 (08:34→11:59)
[2021-05-28] MEDS: Multivitamins/Minerals TAB PO SCH (08:35)
[2021-05-28] MEDS: Cholecalciferol (VIT D3) 1,000 unit TAB PO SCH ×2 (08:35→20:44)
[2021-05-29 08:05] LABS: Cholesterol 151 mg/dL; LDL Cholesterol 73 mg/dL; Triglycerides 95 mg/dL
[2021-05-29 08:37] LABS: TSH Ultra Thyroid Stim Horm 1.93 mcIU/mL (0.34-5.60)
[2021-05-29 08:48] LABS: Folate > 20.00 ng/mL (5.90-24.80)
[2021-05-29 08:49] LABS: Vitamin B12 812 pg/mL (180-914)
[2021-05-29 08:52] LABS: Vitamin D Total 25(OH) 43.8 ng/mL (20-50)
[2021-05-29] MEDS: Amphetamine MIXED SALT 10mgTAB PO SCH ×2 (09:03→12:43)
[2021-05-29] MEDS: Multivitamins/Minerals TAB PO SCH (09:04)
[2021-05-29] MEDS: Cholecalciferol (VIT D3) 1,000 unit TAB PO SCH ×2 (09:04→20:35)
[2021-05-30 08:37] VITALS: BP 129/68
[2021-05-30] MEDS: Cholecalciferol (VIT D3) 1,000 unit TAB PO SCH (09:06)
[2021-05-30] MEDS: Multivitamins/Minerals TAB PO SCH (09:06)
[2021-05-30] MEDS: Amphetamine MIXED SALT 10mgTAB PO SCH ×2 (09:08→12:30)
== END 2021-05-30 14:30 | disposition home or self-care (01) | DRG 754 ==
LOC: ED 00:59 → BSU 10:19
PROVIDERS: ADMIT Psychiatry & Neurology Psychiatry; ATTEND Psychiatry & Neurology Psychiatry